=== PATIENT | male | born 1950 ===

== ENCOUNTER 2016-10-25 09:38 | Emergency (ER) | payer OTHER ==
[2016-10-25] MEDS ORDERED: Ketorolac INJ* 60 MG/2 ML VIAL IM ONE (10:46)
[2016-10-25] MEDS ORDERED: Cyclobenzaprine TAB* 10 MG PO ONE (10:46)
[2016-10-25] MEDS ORDERED: methylPREDNISolone TAB* 4 MG PO ONE (10:49)
--- NOTE | 2016-10-25 10:53 | ED ---
Back Pain - HPI Summary HPI Summary: Patient presents with left sided back pain that radiates down his left leg that began a week ago without incident. The pain is worse after sitting and improves with rest. His pain goes down the back of his thigh to the outside of the calf. He has a history of herniated disc diagnosed approximately 6 years ago, and the pain for that improved with medication and PT. Today he denies N/T, incontinence of urine or stool, and no difficulty with ambulation. - History of Current Complaint Chief Complaint: EDBackInjuryPain Stated Complaint: BACK PAIN Time Seen by Provider: 10/25/16 10:36 Hx Obtained From: Patient, Family/Registered Nurse Nursery Onset/Duration: Gradual Onset, Lasting Weeks - 1, Worse Since - last week Onset/Duration: Atraumatic Timing: Constant Back Pain Location: Radiates To - Low left back pain that radiates down leg Severity Initially: Severe Severity Currently: Severe Pain Intensity: 8 Character: Aching Aggravating Symptom(s): Bending - sitting Alleviating Symptom(s): Rest Associated Signs And Symptoms: Positive: Tingling - intermittently down left leg Related History: Previous Back Injury PMH/Surg Hx/FS Hx/Imm Hx Musculoskeletal History: Reports: Hx Back Problems Infectious Disease History: No Infectious Disease History: Denies: Traveled Outside the [place] in Last 30 Days - Family History Known Family History: Positive: Hypertension - Social History Occupation: Retired Lives: With Family Alcohol Use: Rare Substance Use Type: Reports: None Smoking Status (MU): Never Smoked Tobacco Review of Systems Positive: no symptoms reported Positive: Myalgia. Negative: Decreased ROM, Edema Negative: Weakness, Paresthesia, Numbness All Other Systems Reviewed And Are Negative: Yes Physical Exam Triage Information Reviewed: Yes Vital Signs On Initial Exam: Initial Vitals Temp Pulse Resp BP Pulse Ox 98.7 F 85 16 158/90 100 10/25/16 09:39 10/25/16 09:39 10/25/16 09:39 10/25/16 09:39 10/25/16 09:39 Vital Signs Reviewed: Yes Appearance: Positive: Well-Appearing, Well-Nourished, Pain Distress Skin: Positive: Warm, Skin Color Reflects Adequate Perfusion, Dry, Soft Head/Face: Positive: Normal Head/Face Inspection Eyes: Positive: EOMI, VIOLA, Conjunctiva Clear ENT: Positive: Hearing grossly normal Respiratory/Lung Sounds: Positive: Breath Sounds Present Cardiovascular: Positive: RRR Musculoskeletal: Positive: Strength/ROM Intact, Pain @ - TTP left SI joint, left buttock and posterior thigh.. Negative: Edema Left, Edema Right Neurological: Positive: Sensory/Motor Intact, Alert, Oriented to Person Place, Time, NV Bundle Intact Distally, Abnormal Gait Psychiatric: Positive: Affect/Mood Appropriate AVPU Assessment: Alert Diagnostics - Vital Signs Vital Signs Temp Pulse Resp BP Pulse Ox 10/25/16 09:39 98.7 F 85 16 158/90 100 - Laboratory Lab Statement: Any lab studies that have been ordered have been reviewed, and results considered in the medical decision making process. Back Pain Course/Dx - Diagnoses Differential Diagnosis/HQI/PQRI: Positive: Arthritis, Compressive Cord Syndrome , Epidural Abscess, Herniated Disc, Strain, Sprain Provider Diagnoses: Sciatica Discharge - Discharge Plan Condition: Stable Disposition: HOME Prescriptions: Cyclobenzaprine TAB* [Flexeril TAB*] 10 mg PO TID PRN #15 tab PRN Reason: Pain methylPREDNISolone TAB* [Medrol TAB*] 4 mg PO DAILY #14 tab Patient Education Materials: Sciatica (ED) Referrals: Giselle PRIETO,Beth Lyon [Primary Care Provider] - Additional Instructions: Please take medication as prescribed until it is completely gone. You can begin using Ibuprofen 600mg three times daily with meals tomorrow for the next 3-5 days to decrease pain. Follow-up with your PCP next week for evaluation and treatment options. Return to the emergency department if your symptoms worsen.
[2016-10-25 11:34] VITALS: BP 145/82
== END 2016-10-25 11:33 | disposition home or self-care (01) ==
LOC: ED 09:38
DX: M54.32 Sciatica, left side (principal)
CPT/HCPCS: 96372; 99282; A9270-GY; J1885; J7509